=== PATIENT | male | born 1940 | race Caucasian/White ===

== ENCOUNTER 2023-02-09 12:22 | Outpatient (CLI) | payer MEDICARE, SELFPAY | END 2023-02-09 12:23 | disposition home or self-care (01) | PROVIDERS: Visit Provider Surgery | DX: L89.151 Pressure ulcer of sacral region, stage 1 (principal); E44.0 Moderate protein-calorie malnutrition; Z68.1 Body mass index [BMI] 19.9 or less, adult; F17.210 Nicotine dependence, cigarettes, uncomplicated | CPT/HCPCS: 99203 ==